=== PATIENT | male | born 2000 ===

== ENCOUNTER 2023-05-16 13:42 | Emergency (ER) | payer MEDICAID, SELFPAY ==
[2023-05-16 13:46] VITALS: BP 127/80; PULSE 81; RESP 16; TEMP 36.8; O2SAT 98
--- NOTE | 2023-05-16 14:08 | ED.GENADUL_ITS ---
Discharge Plan Discharge Details Chief Complaint: PsychEval Primary Care Provider: Unknown,Unknown ED Provider: Jaja Contreras Home Meds and New Rx's Prescriptions: No Action No Known Home Meds Medical Decision Making <Moon Rueda NP - Last Filed: 05/16/23 15:36> 22 year old male presents to the ED for medical clearance for voluntary psych admission. Patient was screened by [facility] prior to arrival, Is very guarded and avoids eye contact. Here for Suicidal ideation. Denies any ETOH use, illicit substances, Does not appear to be under any substances. Medically cleared using a smart medical clearance form. Does not appear to be under any substances. UDS ordered. UDS positive for THC and Cocaine. Patient moved over to Zone B. Diet ordered and vital signs every shift and PRN. <Jaja Contreras NP - Last Filed: 05/16/23 21:42> 22 year old male presents to the ED for medical clearance for voluntary psych admission. Patient was screened by [facility] prior to arrival, Is very guarded and avoids eye contact. Here for Suicidal ideation. Denies any ETOH use, illicit substances, Does not appear to be under any substances. Medically cleared using a smart medical clearance form. Does not appear to be under any substances. UDS ordered. UDS positive for THC and Cocaine. Patient moved over to Zone B. Diet ordered and vital signs every shift and PRN. Report and care of patient received from GWENDOLYN Randall. Patient has remained medically stable. There have been no behavioral disturbances. He reportedly ate dinner without difficulty took a shower and has been sleeping. Bed acceptance still pending. report and care of patient will be given to DR Ortega at shift change HPI <Moon Rueda NP - Last Filed: 05/16/23 15:36> General Mode of arrival: ambulatory . Date/Time Provider Initiated Documentation: 05/16/23 13:51 . Limitations to Documentation: no limitations . Information obtained by: patient, RN notes reviewed and old records reviewed . HPI Narrative: 22 year old male presents to the ED for medical clearance for voluntary psych admission. Patient was screened by [facility] prior to arrival, Is very guarded and avoids eye contact. Here for Suicidal ideation. Denies any ETOH use, illicit substances, Does not appear to be under any substances. Related Data Home Medications Medication Instructions Recorded Confirmed Unknown [No Known Home Meds] 05/16/23 05/16/23 Allergies Allergy/AdvReac Type Severity Reaction Status Date / Time No Known Allergies Allergy Unverified 05/16/23 13:49 General Stated Complaint: PsychEval MARYELLEN: 2 Review of Systems <Moon Rueda NP - Last Filed: 05/16/23 15:36> All systems reviewed & are unremarkable except as noted in HPI and below Psychiatric Psychiatric: Reports as per HPI, Reports depression, Reports hopelessness and Reports suicidal ideation PFSH <Moon Rueda NP - Last Filed: 05/16/23 15:36> Social History Smoking/Tobacco Use Status: Current every day Tobacco Type: cigarettes Smoking risk assessment performed?: Yes Alcohol Intake: current Alcohol Intake frequency: holidays/special occasions only Drug use: Daily Substance use type: marijuana Housing: apartment Do you feel safe at home: Yes Do you feel safe in your relationship?: Yes Exam <Moon Rueda NP - Last Filed: 05/16/23 15:36> Narrative Exam Narrative: Constitutional: Alert and oriented x3. Appears stated age. Normal body habitus. Head: Normocephalic, no trauma. Eyes: Pupils PERRL, Red reflex noted, EOM's intact. Eyelids symmetrical without lesions, discharge, or swelling. ENT: Bilateral TM's WNL, External ear normal to inspection, no mastoid TTP, swelling, or erythema, Nasal turbinates WNL, no nasal discharge. Normal dentition, Posterior pharynx WNL, no exudate. Chest: RRR, Normal S1, S2, distal pulses intact. Resp: Lungs clear to auscultation bilaterally, no wheezes, rales, or rhonchi. Abdomen: Soft, non-distended, Normoactive bowel sounds all 4 quads. Musculoskeletal: Normal gait, 5/5 strength to all four extremities. Skin: No suspicious rashes or lesions. Capillary refill less than 2 sec. Neurologic: Cranial nerves II-XII intact. Alert and oriented x 3. Motor: No deficits noted. Sensory: Intact bilaterally all 4 extremities. Hematologic/Lymphatic: No ecchymosis, no lymphadenopathy. Psych Speech and Movement: delayed speech and slowed movement Mood: labile mood Affect: blunted Attitude: guarded and avoids eye contact Thought Content: suicidality Insight: limited Judgment: limited Other: Reports suicidal thoughts going on for a long time. Course <Moon Rueda NP - Last Filed: 05/16/23 15:36> Vital Signs Vital signs: Vital Signs Temperature 36.8 C 05/16/23 13:46 Pulse 81 05/16/23 13:46 Respiratory Rate 16 05/16/23 13:46 Blood Pressure 127/80 05/16/23 13:46 Pulse Oximetry 98 05/16/23 13:46 Temperature 36.8 C 05/16/23 13:46 Temperature Source Oral 05/16/23 13:46 Pulse 81 05/16/23 13:46 Respiratory Rate 16 05/16/23 13:46 Respiratory Effort Normal, Non-Labored 05/16/23 13:50 Blood Pressure 127/80 05/16/23 13:46 Blood Pressure Position Sitting 05/16/23 13:46 Pulse Oximetry 98 05/16/23 13:46 Oxygen Delivery Method Room Air 05/16/23 13:46 Oxygen Flow Rate 0 05/16/23 13:46 Pain Level 0 05/16/23 13:46 Sign Out <Moon Rueda NP - Last Filed: 05/16/23 15:36> Sign Out Data: Sign Out Comment: Suicidal. Evaluated by [facility] prior to arrival. Pending Voluntary placement. Last updated by Moon Rueda NP at 05/16/23 15:18 Sign Out Comment: Patient awaiting voluntary inpatient psychiatric placement. He has had no behavioral disturbances. He took a shower earlier in the shift and ate dinner and has been sleeping since. Medically he has been stable and cleared. Last updated by Jaja Contreras NP at 05/16/23 21:33
[2023-05-16 14:33] LABS: *AMPHETAMINES SCREEN URINE Negative (Negative); *BARBITURATES SCREEN URINE Negative (Negative); *BENZODIAZEPINES SCREEN URINE Negative (Negative); Cannabinoids THC Positive (Negative); Cocaine Screen,Urine Positive (Negative); METHADONE URINE SCREEN Negative (Negative); OPIATES URINE SCREEN Negative (Negative)
[2023-05-16 14:34] LABS: Tricyclic Antidepressants Negative (Negative)
--- NOTE | 2023-05-16 14:50 | PDOC.MHCN ---
Date of service: 05/16/23 Time of Service: 14:51 PHQ-9 Over the last 2 weeks, how often have you been bothered by any of the following problems? 1. Little interest or pleasure in doing things: nearly every day 2. Feeling down, depressed, or hopeless: nearly every day 3. Trouble falling or staying asleep, or sleeping too much: nearly every day 4. Feeling tired or having little energy: nearly every day 5. Poor appetite or overeating: nearly every day 6. Feeling bad about yourself - or that you are a failure or have let yourself and your family down: nearly every day 7. Trouble concentrating on things, such as reading the newspaper or watching television: nearly every day 8. Moving or speaking so slowly that other people could have noticed? - Or the opposite - being so fidgety or restless that you have been moving around a lot more than usual: several days 9. Thoughts that you would be better off or of hurting yourself in some way: nearly every day Total score: 25 If you checked off any problems, how difficult have these problems made it for you to do your work, take care of things at home, or get along with other people?: extremely difficult Source: Developed by Drs. Mejia Arthur, Charlette Lamas, Higinio Brooke and colleagues, with an educational sanjuana from [employer]. Suicide Severity Rate CSSRS Have you wished you were or wished you could go to sleep and not wake up?: Yes Have you actually had any thoughts of killing yourself?: Yes CSSRS2 Have you been thinking about how you might do this?: Yes Have you had these thoughts and had some intention of acting on them?: Yes Have you started to work out or worked out the details of how to kill yourself? Do you intend to carry out this plan?: Yes CSSRS3 Have you ever done anything, started to do anything or prepared to do anything to end your life?: Yes CSSRS4 Was this within the past three months?: Yes Screening Score Total Score: 8 Screening: Positive Mental Health Emergency Note Release [facility] release signed:: Yes Reason for Visit The client was at [facility] [facility] for an appointment and had made statements about having only two options 1. go back to nursing home or 2. be . His financial aids officer (PO), Rhonda ([phone]) reported that he has made statements in the past but he presented significantly worse today and has not been caring for himself and is very tearful and feels out of control. She requested an evaluation to address thee concerns. In the last 2 weeks has the pt presented for ES prior to today?: Unknown Client Information Client is: Adult Outpatient Well Housed: No,status: Not homeless, Unstable housing Non Suicidal Self Injury Current: Yes, Declined to share details at this time. Safety Risk/Harm to Self or Others Current Ideation to Harm Self or Others: Yes to self. Intent: no, has no intent. Plan: yes,has a plan. History of suicide attempt: yes,history of suicide attempt reported. Details of previous suicide attempt: Started to prepare but did not follow through. Risk: Does risk to harm exist?: yes. Risk: Moderate Risk Duty to warn indicated: No Asssessment/Mental Status Appearance: Disheveled Attitude: Cooperative and Passive Behavior: Other (withdrawn and low energy. ) Speech: Soft and Slow Affect: Cogruent with mood Mood: Depressed Thought process: Unremarkable Hallucinations: No Delusions: No Attention: Unremarkable Perception: Not impaired Orientation: Fully orientated Memory: Intact Insight: Fair Judgement: Fair Neurovegetative Symptoms Sleep: Decrease Appetitie: Decrease Interests: Decrease Energy: Decrease Libido: Not applicable Substance Use: Do you use nicotine?: Yes Have you used substances in the last 7 days?: No Additional Issues: Assaultive/Threatening Behavior: No Medical Concerns: No Client engaged in active self harm w/weapon: No Threatening to run away: No Child reported abuse/neglect: No Voluntarily presenting for services: Yes Domestic violence is a concern: No Extreme Psychosis or extreme behavior is present: No Impression The client is a 22 year old, single, Citizen Of [place] male who lives with his fianc? and dog. He works at a place called [employer] and is to return to work next week. He reports a history of risky behaviors to try and get others to kill him but that has not worked. He endorses SI with plan but no intent I don't have the guts. That's the best way I can put it. He reported that he engages in NSSI however, does not want to share detail of this with this clinician at this time. 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 The client presents with a flat affect and poor eye contact (looking at floor or body turned away from this clinician). He presents as hopeless and helpless. Plan/Disposition Recommended Disposition: Hospitalization facilities contacted. Plan: The client was agreeable to an inpatient referral and will go drop off his fianc? and report to [facility] for medical clearance. He agreed to referrals for psychiatry and case management. [facility] was made aware of his pending arrival. Client will be reassessed daily until placement is found. Person reported agreement to plan: Yes Facilities contacted if Applicable [facility] Not accepted, Other [facility] (referral sent ) Not accepted, Other [facility] (referral sent ) Not accepted, [facility] ([facility] ) Not accepted, Other Reports/communication Outcome discussed with: ED/Personnel
--- NOTE | 2023-05-16 23:49 | NUR.NOTE ---
Received report from NEERAJ Fernandez who was with patient from [phone]. Patient was pleasant. Patient went to the bathroom 4 times, and some snacks and a few sodas. Patient appears to be sleeping at 2300. Nursing Note:
--- NOTE | 2023-05-17 09:40 | CMSP_ITS ---
Date of service: 05/17/23 Time of Service: 09:40 Care Management Safety Plan Status Status: Voluntary Reason for Wait Reason for Wait: Inpatient Admission Safety Plan Safety Plan: VOLUNTARY FOR INPATIENT PSYCHIATRIC STABILIZATION.? Patient is appropriate in all interactions since arriving at [facility]; Pt has demonstrated appropriate coping and communication skills, has articulated his or her needs and concerns and is fully engaged during staff interactions. Safety plan has been established with patient, and care team, to adhere to patient goals, identify restrictions based on behavioral status, address nutrition, and determine allowed personal belongings, tools for hygiene and personal care. Determine level of activity including ambulation, level of superv ision, visitors, and determine privileges based on behaviors and level of engagement by pt. SAFETY PLAN: 1. Will remain on suicide precautions, in paper clothes 2. Will remain in room under direct supervision of one-on-one staff at all times provided by [facility]; NEERAJ, AUDITOR SUPERVISOR bench inspector. 3. May have paper cups, plates, finger foods as well as a cardboard spoon with which to eat meals. 4. Follow [facility] Management of the Admitted Behavioral Health Patient policy. 5. Comfort bath system, shower permitted with escort at RN discretion. 6. Personal belongings-soft items permitted at RN discretion. 7. Visitors-none at this time. 8. Activities: soft cart items approved per RN discretion. 9.?Bathroom privileges with escort in the ED. 10. Phone: limited to cordless phone at RN discretion. Due to VOLUNTARY status, if patient wishes to leave [facility], staff will contact [facility] Crisis Screener ([phone]) and On-Call Pest Control Chemical Technician ([phone]) as soon as possible. In the event of elopement, notify [facility] Police ([phone]). Patient is currently voluntarily at [facility] and seeking inpatient admission when a bed becomes available. [facility] Frontline Inspector Brake Lining will continue seeking placement. Please contact the Family Consultant Pest Control Chemical Technician ([phone]) and [facility] Inspector Brake Lining ([phone]) for any needed changes in the Safety Plan. Safety plan has been provided to interdepartmental care team.
--- NOTE | 2023-05-17 10:10 | NUR.NOTE ---
Nursing Note: this RN gave Kylah Nurse at [facility]. Okay to transfer to [facility]
[2023-05-17 10:18] VITALS: BP 112/71; PULSE 84; RESP 20; TEMP 36.4; O2SAT 100
--- NOTE | 2023-05-17 10:45 | ED.PROG_ITS ---
Date of service: 05/17/23 Time of Service: 07:00 Medical Decision Making MDM: Summary: Patient presents to the emergency department voluntary stating that he has been very depressed with some suicidal thoughts. Data Review Analysis All the data on this patient was reviewed by me including laboratory and imaging studies as well as bedside studies performed by me Independent review of Studies Imaging Lab: He was medically cleared by the television cabinet finisher provider labs are unremarkable Risk Stratification: Patient with depression with high risk of suicidality he was voluntary in the emergency department and will be transferred to [facility] where he was accepted by the psychiatrist for inpatient treatment Differential Diagnosis: 1. Depression 2. Anxiety substance abuseoa retreat with accepted the patient 3. 4. 5. Consultants: consultants with the psychiatrist Shared disposition: Patient understands disposition and will be transferred there Impression: Exam Narrative Exam Narrative: Unchanged as per previous provider Sign Out Sign Out Data: Sign Out Comment: Suicidal. Evaluated by [facility] prior to arrival. Pending Voluntary placement. Last updated by Moon Rueda NP at 05/16/23 15:18 Sign Out Comment: Patient awaiting voluntary inpatient psychiatric placement. He has had no behavioral disturbances. He took a shower earlier in the shift and ate dinner and has been sleeping since. Medically he has been stable and cleared. Last updated by Jaja Contreras NP at 05/16/23 21:33 Sign Out Comment: pending voluntary placement for SI Last updated by Alf Ortega MD at 05/17/23 06:45 Discharge Plan Disposition Patient Disposition: Psychiatric Hospital/Unit Specific Psychiatric Facility: [facility] Condition: Stable Discharge Details Chief Complaint: PsychEval Clinical Impression: Depression Primary Care Provider: Unknown,Unknown ED Provider: Royce Light Home Meds and New Rx's Prescriptions: No Action No Known Home Meds Discharge Instructions Instructions: Depression (ED) Discharge Data Discharge Physician: Royce Light
--- NOTE | 2023-05-17 12:08 | PDOC.MHPN2 ---
Date of service: 05/17/23 Time of Service: 12:08 Mental Health Emergency Note Release [facility] release signed:: Yes Reason for Visit The client was at [facility] [place] [facility] for an appointment on 05.16.23 and had made statements about having only two options 1. go back to [facility] or 2. be . His armor officer (PO), Rhonda ([phone]) reported that he had made statements in the past but he presented significantly worse on this day and has not been caring for himself and is very tearful and feels out of control. She requested an evaluation to address these concerns.
--- NOTE | 2023-05-19 13:44 | NUR.NOTE ---
[facility] called asking of disposition of this patient. THey were told he went to [place]. Nursing Note:
== END 2023-05-17 11:28 ==
PROVIDERS: Registered Nurse Emergency; Emergency Provider Emergency Medicine Emergency Medical Services
DX: F32.A Depression, unspecified (principal); F10.90 Alcohol use, unspecified, uncomplicated; F14.90 Cocaine use, unspecified, uncomplicated; R45.851 Suicidal ideations
CPT/HCPCS: 00123; 80307; 96127; 99285